=== PATIENT | female | born 1990 | race Caucasian/White ===

== ENCOUNTER 2018-08-27 05:58 | Inpatient (IN) | payer BC ==
[~2018-08-27] VITALS: Ht 165.1 cm; Wt 89.5 kg
[2018-08-27] MEDS ORDERED: OXYTOCIN 30U/ 0.9% NaCL 500ML 500 ML IV ONE (06:24)
[2018-08-27] MEDS ORDERED: MISOPROSTOL 25 MCG TABLET VG PRN (06:30)
[2018-08-27] MEDS ORDERED: CALCIUM CARBONATE 500 MG TAB.CHEW PO PRN (06:30)
[2018-08-27] MEDS ORDERED: FENTANYL PF 100 MCG/2ML IVPush PRN (06:30)
[2018-08-27] MEDS ORDERED: FENTANYL PF 100 MCG/2ML IV PRN (06:30)
[2018-08-27] MEDS ORDERED: ONDANSETRON 2MG/ML, 2ML IVPush PRN (06:30)
[2018-08-27] MEDS ORDERED: NEWBORN KIT ONE (06:36)
[2018-08-27] MEDS ORDERED: OXYTOCIN 30U/ 0.9% NaCL 500ML 500 ML ONE (06:37)
[2018-08-27] MEDS ORDERED: LIDOCAINE 1%, 20ML ONE (06:37)
[2018-08-27] MEDS ORDERED: MISOPROSTOL 25 MCG TABLET ONE (06:37)
[2018-08-27 06:47] LABS: BASOPHILS # (AUTO) 0.05 x10^3/uL (0-0.1); BASOPHILS % (AUTO) 1 % (0-1); EOSINOPHILS # (AUTO) 0.18 x10^3/uL (0-0.4); EOSINOPHILS % (AUTO) 2 % (1-7); LYMPHOCYTES # (AUTO) 2.05 x10^3/uL (1-3.4); LYMPHOCYTES % (AUTO) 21 % (22-44); MD NO; MEAN CORPUSCULAR HEMOGLOBIN 29.9 pg (27.0-34.8); MEAN CORPUSCULAR HGB CONC 33.7 g/dL (32.4-35.8); MEAN CORPUSCULAR VOLUME 88.8 fL (80-100); MEAN PLATELET VOLUME 9.6 fL (7.4-10.4); MONOCYTES % (AUTO) 6 % (2-9); NEUTROPHILS # (AUTO) 6.93 x10^3/uL (1.8-6.8); NEUTROPHILS % (AUTO) 71 % (42-75); PLATELET COUNT 181 x10^3/uL (130-400); RED BLOOD COUNT 3.86 x10^6/uL (3.82-5.3); RED CELL DISTRIBUTION WIDTH 13.7 % (9.6-15.2)
[2018-08-27 07:19] VITALS: BP 135/59
[2018-08-27] MEDS ORDERED: LACTATED RINGERS 1,000 ML IV SCH (15:45)
[2018-08-27] MEDS ORDERED: FENTANYL/BUPIV./NS/PF 250 ML EPIDCONT SCH ×2 (15:45→16:01)
[2018-08-27] MEDS ORDERED: FENTANYL PF 500 MCG, BUPIVACAINE/PF 0.5%, 30ML 62.5 ML in SODIUM CHLORIDE 0.9% 177.5 ML EPIDCONT SCH (16:00)
[2018-08-27] MEDS ORDERED: LACTATED RINGERS 1,000 ML IVBOLUS PRN ×2 (16:00→16:30)
[2018-08-27] MEDS: LACTATED RINGERS 1,000 ML IV SCH (16:01)
[2018-08-27] MEDS ORDERED: BUPIVACAINE 0.25% ONE (16:02)
[2018-08-27] MEDS ORDERED: EPHEDRINE 50 MG/ML, 1ML IVPush PRN (16:30)
[2018-08-27 19:32] VITALS: BP 129/72
[2018-08-27] MEDS: OXYTOCIN 30U/ 0.9% NaCL 500ML 500 ML IV SCH (20:26)
[2018-08-27] MEDS ORDERED: DOCUSATE 100 MG CAPSULE PO PRN (21:00)
[2018-08-27] MEDS ORDERED: OXYcodone/APAP 5/325MG TABLET PO PRN (21:00)
[2018-08-27] MEDS ORDERED: IBUPROFEN 600 MG TABLET PO PRN (21:00)
[2018-08-27] MEDS ORDERED: ACETAMINOPHEN 325 MG TABLET PO PRN (21:00)
[2018-08-27] MEDS ORDERED: MISOPROSTOL 200 MCG TABLET PR PRN (21:00)
[2018-08-27 22:25] VITALS: BP 117/69
[2018-08-28] MEDS: LACTATED RINGERS 1,000 ML IV SCH ×3 (00:01→16:22)
[2018-08-28 02:00] VITALS: BP 112/67
[2018-08-28 05:37] LABS: BASOPHILS # (AUTO) 0.03 x10^3/uL (0-0.1); BASOPHILS % (AUTO) 0 % (0-1); EOSINOPHILS # (AUTO) 0.11 x10^3/uL (0-0.4); EOSINOPHILS % (AUTO) 1 % (1-7); LYMPHOCYTES # (AUTO) 1.74 x10^3/uL (1-3.4); LYMPHOCYTES % (AUTO) 16 % (22-44); MD NO; MEAN CORPUSCULAR HEMOGLOBIN 29.4 pg (27.0-34.8); MEAN CORPUSCULAR HGB CONC 33.1 g/dL (32.4-35.8); MEAN CORPUSCULAR VOLUME 89.1 fL (80-100); MEAN PLATELET VOLUME 10.4 fL (7.4-10.4); MONOCYTES # (AUTO) 0.79 x10^3/uL (0.2-0.8); MONOCYTES % (AUTO) 7 % (2-9); NEUTROPHILS # (AUTO) 8.39 x10^3/uL (1.8-6.8); NEUTROPHILS % (AUTO) 76 % (42-75); PLATELET COUNT 182 x10^3/uL (130-400); RED BLOOD COUNT 3.98 x10^6/uL (3.82-5.3); RED CELL DISTRIBUTION WIDTH 13.7 % (9.6-15.2)
[2018-08-28 05:45] VITALS: BP 99/64
[2018-08-28] MEDS: OXYTOCIN 30U/ 0.9% NaCL 500ML 500 ML IV SCH ×2 (06:31→16:23)
[2018-08-28 07:45] VITALS: BP 105/70
[2018-08-28] MEDS ORDERED: PRENATAL VIT/IRON/FA 1 EACH TABLET PO SCH (09:00)
[2018-08-28 11:32] VITALS: BP 113/73
[2018-08-28] MEDS ORDERED: IBUP-1222 PO (12:24)
[2018-08-28 15:52] VITALS: BP 129/94
[2018-08-28 19:48] VITALS: BP 106/70
== END 2018-08-28 21:00 | disposition home or self-care (01) | DRG 807 ==
LOC: LDIP 05:58 → 2NW 22:11
PROVIDERS: ADMIT Obstetrics & Gynecology; ATTEND Obstetrics & Gynecology
PROC: 10E0XZZ Delivery of Products of Conception, External Approach (ICD-10-PCS; principal; 2018-08-28)
PROC: 10907ZC Drainage of Amniotic Fluid, Therapeutic from Products of Conception, Via Natural or Artificial Opening (ICD-10-PCS; 2018-08-28)
PROC: 3E0R3BZ Introduction of Anesthetic Agent into Spinal Canal, Percutaneous Approach (ICD-10-PCS; 2018-08-28)
PROC: 00HU33Z Insertion of Infusion Device into Spinal Canal, Percutaneous Approach (ICD-10-PCS; 2018-08-28)
DX: O80 Encounter for full-term uncomplicated delivery (principal); Z37.0 Single live birth; Z3A.38 38 weeks gestation of pregnancy; Z95.810 Presence of automatic (implantable) cardiac defibrillator; Z86.718 Personal history of other venous thrombosis and embolism
CPT/HCPCS: 36415; 85025; 86850; 86900; G0378; J3010; J3490; J2590; J7050; J7120